=== PATIENT | male | born 1990 | race Caucasian/White ===

== ENCOUNTER 2025-05-07 06:15 | Day surgery (SDC) | payer OTHER, SELFPAY ==
[2025-05-07] VITALS (11 sets, daily range): BP systolic 123–149; BP diastolic 76–96; BMI 28.2
[2025-05-07] MEDS: NORMOSOL-R/PLASMALYTE-A 1000 IV (10:28)
[2025-05-07] MEDS: DILAUDID 0.5 MG IV (13:53)
[2025-05-07] MEDS: ROXICODONE 5 MG PO (15:14)
== END 2025-05-07 15:20 | disposition home or self-care (01) ==
LOC: SDS 06:15
PROVIDERS: ATTENDING PHYSICIAN Otolaryngology
DX: J34.2 Deviated nasal septum (principal); J34.3 Hypertrophy of nasal turbinates
CPT/HCPCS: 30130; 87070; 88304; 88311